=== PATIENT | female | born 1995 | race Caucasian/White ===

== ENCOUNTER 2018-09-03 11:47 | Emergency (ER) | payer BC ==
--- NOTE | 2018-09-03 12:22 | UC ---
- HPI Summary HPI Summary: Pt is a 22 y/o F presenting to the ED with a chief complaint of a lump in her R armpit that she noticed yesterday. She denies any recent infection, discharge of the nipple, sore throat, or fever. Pressing on the area makes it worse. - History of Current Complaint Hx Obtained From: Patient Breast Chief Complaint: Right - axilla, Palpable Lump Onset/Duration: Started Hours Ago, Still Present Timing: Constant, Lasting Hours Breast Pain Radiates To: Right, Axilla Breast Pain Aggravating Factors: Palpation Breast Pain Alleviating Factors: Nothing Breast Associated Signs/Symptoms: Nodule/Mass - Allergy/Home Medications Allergies/Adverse Reactions: Allergies Allergy/AdvReac Type Severity Reaction Status Date / Time No Known Allergies Allergy Verified 09/03/18 12:09 Home Medications: Home Medications Escitalopram * [Lexapro *] 20 mg PO DAILY 09/03/18 [History Confirmed 09/03/18] PMH/Surg Hx/FS Hx/Imm Hx Previously Healthy: Yes Endocrine History: Other - negative diabetes Cardiovascular History: Other - negative HTN - Family History Known Family History: Negative: Cardiac Disease - Social History Alcohol Use: Occasionally Substance Use Type: Marijuana Smoking Status (MU): Never Smoked Tobacco Review of Systems All Other Systems Reviewed And Are Negative: Yes Constitutional: Negative: Fever Skin: Positive: Negative - discharge of nipple, Other - lump in R axilla ENT: Negative: Sore Throat Physical Exam - Summary Physical Exam Summary: Appearance: Well appearing, no pain distress Skin: warm, dry, reflects adequate perfusion Head/face: normal Eyes: EOMI, PUNEET ENT: normal Chest: Tenderness in the R axilla with mild erythema. Small tender lymph node present. There is no tenderness of the breast. Neck: supple, non-tender Respiratory: CTA, breath sounds present Cardiovascular: RRR, pulses symmetrical Abdomen: non-tender, soft Musculoskeletal: normal, strength/ROM intact Neuro: normal, sensory motor intact, A&Ox3 Triage Information Reviewed: Yes Vital Signs: Initial Vital Signs Temp 98.6 F 09/03/18 11:48 Pulse 73 09/03/18 11:48 Resp 16 09/03/18 11:48 BP 127/86 09/03/18 11:48 Pulse Ox 100 09/03/18 11:48 Vital Signs Reviewed: Yes Breast Pain Course/Dx - Course Course Of Treatment: Pt is a 22 y/o F presenting to the ED with a chief complaint of a lump in her R armpit that she noticed yesterday. She denies any recent infection, discharge of the nipple, sore throat, or fever. Pressing on the area makes it worse. On exam, there is tenderness in the R axilla with mild erythema. Small tender lymph node present. There is no tenderness of the breast. She will be d/c'ed home with a dx of folliculitis and instructions to follow up with her PCP within 2-3 days. She is stable and agreeable with this plan. - Differential Diagnoses Differential Diagnosis/HQI/PQRI: Other: - folliculitis axilla - Diagnoses Provider Diagnoses: Folliculitis of right axilla Discharge - Sign-Out/Discharge Documenting (check all that apply): Patient Departure Patient Received Moderate/Deep Sedation with Procedure: No - Discharge Plan Condition: Stable Disposition: HOME Prescriptions: Ibuprofen TAB* [Motrin TAB* 600 MG] 600 mg PO Q8H PRN #15 tab MDD 3 PRN Reason: Pain Sulfamethox/Trimethoprim DS* [Bactrim DS 800/160 TAB*] 1 tab PO BID #14 tab Referrals: [facility] [Outside] Additional Instructions: Please follow up with your primary care provider in 2-3 days. Return to the ED with any new or worsening symptoms. - Billing Disposition and Condition Condition: STABLE Disposition: Home - Attestation Statements Document Initiated by Mag: Yes Documenting Scribe: Britney Yanes Provider For Whom Mag is Documenting (Include Credential): Joe Airzmendi MD. Scribe Attestation: Britney Morgan, yunieled for Joe Arizmendi MD. on 09/03/18 at 1610. Scribe Documentation Reviewed: Yes Provider Attestation: The documentation as recorded by the Britney allan accurately reflects the service I personally performed and the decisions made by , Joe Arizmendi MD. Status of Scribe Document: Viewed
[2018-09-03 12:41] VITALS: BP 101/63
== END 2018-09-03 12:40 | disposition home or self-care (01) ==
LOC: ED 11:47
DX: L73.9 Follicular disorder, unspecified (principal)
CPT/HCPCS: 99282